=== PATIENT | female | born 1940 | race Caucasian/White ===

== ENCOUNTER → 2016-11-18 | Outpatient (CLI) | payer OTHER, BC | LOC: ULTRA 12:57 | DX: E04.2 Nontoxic multinodular goiter (principal) ==

== ENCOUNTER → 2017-09-07 | Outpatient (CLI) | payer OTHER, BC ==
[~2017-09-07] VITALS: Ht 154.9 cm; Wt 82.1 kg
[~2017-09-07] MED LIST: ATIVAN0.5 MG PO; CARDIZEM CD180 MG PO; CELEXA10 MG PO; COREG6.25 MG PO; COZAAR 50 MG TA50 M2 PO; CRESTOR10 MG PO; DEXILANT60 MG PO; HYDROCHLOROTHIA25 M2 PO; MESALAMINE800 MG PO; PEPCID20 MG PO
--- NOTE | ~2017-09-07 | P ---
[facility] [address] [address] PROCEDURE REPORT Name: AWILDA SILVA Room #: REG LOGAN Jing.#: [id number] Admission: 09/07/17 Attend Phys: Everette Barba MD Discharge: Date of : 42 Report #: [id number] THIS REPORT FOR: //name// CC: Everette Barba BRIEF HISTORY: The patient is a 77-year-old woman with previous history of dysphagia. She again reports solid food dysphagia with food hanging up at the level of suprasternal notch. She also had a recent admission to [facility] for atypical chest pain with burning in her chest. She reports to me that cardiovascular workup including stress testing at [facility] was negative. She is currently taking Dexilant 60 mg daily, which helps a lot, but she still has breakthrough symptoms, which she manages with [id number] Pepcid. PREOPERATIVE DIAGNOSIS: Dysphagia and reflux disease. POSTOPERATIVE DIAGNOSES: 1. Mild to moderate erosive antral gastritis. 2. Solid food dysphagia. MEDICATIONS: Deep sedation with propofol per anesthesia. SPECIMEN: Biopsies of gastritis. ESTIMATED BLOOD LOSS: 3 mL. PROCEDURE: EGD with biopsy and Acosta dilation. FINDINGS: Prior to propofol sedation, procedure of upper endoscopy and dilation was reviewed with the patient as well as potential risks and its complications. She indicates she understands and desires to proceed. DESCRIPTION OF PROCEDURE: With the patient in left decubitus position, Fuji video endoscope was inserted in the cervical esophagus under direct vision without difficulty. Examination of this organ through its entire length revealed normal esophageal mucosa down to the squamocolumnar junction. Squamocolumnar junction was normal. Even though she has reflux disease, I did not see evidence of esophagitis, Carbajal mucosa, strictures, masses or hiatus hernia. The scope was advanced into the stomach, which was examined on end view as well as retroflexed views. Examination of the stomach on end view as well as retroflexed views revealed antral gastritis with scattered erosions. No ulcers were seen. Upon retroflexion, no mass lesions were seen in the cardia. The pylorus, duodenal bulb and postbulbar duodenal sweep were inspected and noted to be unremarkable. At that point, the scope was slowly withdrawn and careful circumferential views confirmed the above findings. The patient tolerated the procedure well. [address] [address] PROCEDURE REPORT Name: AWILDA SILVA Room #: REG RAMESHLluvia Barber#: [id number] Admission: 09/07/17 Attend Phys: Everette Barba MD Discharge: Date of : 42 Report #: [id number] Subsequently, she was dilated with passage of 52-Czech Acosta dilator. There was no resistance. CONDITION OF THE PATIENT UPON DISCHARGE: Following procedure, the patient was drowsy, arousable, conversant. She will be discharged home when fully ambulatory. INSTRUCTIONS TO THE PATIENT AND FAMILY AT THE TIME OF DISCHARGE: As for her dysphagia, I did not see definite stricture ring. However, she has been dilated in the past and we dilated similar to what we did several years ago. If she has recurrent symptoms in the future and has benefit from dilation, she can return on an as needed basis for dilation. As far as her reflux disease, at this time she is requiring fairly significant therapy. She should continue to do so and if does well over time, consider a dose reduction of Dexilant. She will follow up with Dr. Everette Keyes. She should follow up with me if symptoms do not improve or recur. By: [id number] Everette Barba MD /nt
--- NOTE | ~2017-09-07 | PATH ---
[facility] [address] [place] [address] PATHOLOGY RPT PROCEDURE Name: AWILDA SILVA Room #: REG [facility] MAngelina.#: [id number] Admission: 09/07/17 Date of : 42 Discharge: Report #: [id number] Path Case #: [id number] [facility] Accession Number: [id number] . 01 Material submitted: . BIOPSY, GASTRITIS . 01 Clinical history: . Dysphagia, gastritis . 02 Diagnosis: "Bx gastritis," biopsy: - Gastric mucosa with mild reactive changes and mild chronic inflammation. - Negative H. pylori immunohistochemical stain (A1); control reacted appropriately. (CLW:mgsalnia; 09/08/17) QRQ/09/08/2017 . 02 Electronically signed: . Gretchen Sweeney MD, Pathologist NPI- [id number] . 01 Gross description: . The specimen is received in formalin, labeled "Alexander Awilda, BX gastritis" and consists of multiple fragments of albright soft tissue measuring 1.4 x 0.5 x 0.2 cm in aggregate. They are entirely submitted in A1. (SDY; 09/07/2017) SYU/SYU . 02 CPT . 554516, [id number] Performed at: [address], [place], [place] [id number] MD Yoshi Aguirre MD Phone: [phone] Performed at: [address] [id number] MD Manisha Carmona MD Phone: [phone]
== END | disposition home or self-care (01) ==
LOC: GI 07:40
DX: K29.50 Unspecified chronic gastritis without bleeding (principal); I10 Essential (primary) hypertension; F32.9 Major depressive disorder, single episode, unspecified; F41.9 Anxiety disorder, unspecified; J45.909 Unspecified asthma, uncomplicated; E78.5 Hyperlipidemia, unspecified; Z85.828 Personal history of other malignant neoplasm of skin; Z98.0 Intestinal bypass and anastomosis status; Z90.710 Acquired absence of both cervix and uterus; Z98.890 Other specified postprocedural states; Z98.41 Cataract extraction status, right eye; Z98.42 Cataract extraction status, left eye; Z79.899 Other long term (current) drug therapy; Z88.2 Allergy status to sulfonamides; Z88.8 Allergy status to other drugs, medicaments and biological substances
CPT/HCPCS: 62110; 62900

== ENCOUNTER → 2019-09-06 | Outpatient (CLI) | payer OTHER, BC ==
[~2019-09-06] VITALS: Ht 152.4 cm; Wt 74.8 kg
--- NOTE | ~2019-09-06 | P ---
[facility] [place] [address] PROCEDURE REPORT Name: AWILDA SILVA Room #: [facility] [id number] Admission: 09/06/19 Attend Phys: Everette Barba MD Discharge: Date of : 42 Report #: [id number] THIS REPORT FOR: cc: Everette Keyes MD, John M. MD Thesing, John A. MD ~ CC: Everette Barba BRIEF HISTORY: The patient is a 79-year-old woman with recent complaints of rectal bleeding. Her father had colon cancer. She has had a previous right hemicolectomy. Her last colonoscopy was more than 5 years ago. PREOPERATIVE DIAGNOSIS: Rectal bleeding. POSTOPERATIVE DIAGNOSES: 1. Rectal bleeding. 2. Perianal dermatitis. MEDICATIONS: Deep sedation with propofol per anesthesia. SPECIMEN: None. ESTIMATED BLOOD LOSS: None. PROCEDURE: Colonoscopy to distal ileum. MEDICATIONS: Deep sedation with propofol per anesthesia. SPECIMEN: None. ESTIMATED BLOOD LOSS: None. FINDINGS: Prior to propofol sedation, procedure of colonoscopy discussed with the patient as well as potential risks and its complications. She indicates she understands and desires to proceed. DESCRIPTION OF PROCEDURE: With the patient in left lateral decubitus position, digital examination was completed, which revealed fairly marked perianal dermatitis. Subsequently, the Olympus video colonoscope was introduced into the rectum, advanced under direct vision to the cecum. Done with minimal difficulty. The cecum was identified by the ileocecal valve and the appendiceal orifice. The scope was advanced to the proximal colon. In the proximal colon, an ileocolonic anastomosis was identified. The anastomosis was widely patent. The scope was advanced across the anastomosis and distal ileum was inspected and noted to be unremarkable. At that point, the scope was slowly withdrawn and [facility] [address] [place] [address] PROCEDURE REPORT Name: AWILDA SILVA Room #: REG LOGAN Barber#: [id number] Admission: 09/06/19 Attend Phys: Everette Barba MD Discharge: Date of : 42 Report #: [id number] careful circumferential views were obtained. Upon slow withdrawal of the scope, the prep was excellent. Mucosa was within normal limits, normal vascular pattern, normal light reflex. The mucosa was within normal limits throughout. No neoplastic lesions were seen. No bleeding lesions were seen. No inflammatory changes were seen. She had a normal endoscopic examination. The scope was withdrawn in the rectum and no abnormalities were seen. Upon retroflexion, no abnormalities were seen. Significant hemorrhoids were not seen. The anal fissuring was not seen. Scope was withdrawn. The patient tolerated the procedure well. CONDITION OF THE PATIENT UPON DISCHARGE: Following procedure, the patient drowsy. She will be discharged home when fully ambulatory. INSTRUCTIONS TO THE PATIENT AND FAMILY AT THE TIME OF DISCHARGE: No neoplastic or bleeding lesions were seen. However, I suspect the bleeding came from the anal canal. She did have some recent problems with constipation. I did not see any fissuring or any significant hemorrhoids. She does have a significant perianal dermatitis. We will discuss further with the patient. We will have her use nystatin cream and hydrocortisone cream as well. She should also use a barrier and keep this area dry. She also may need to use a skin barrier and also keep this area dry. Given her family history and her previous history, have her return in 5 years for a followup colonoscopy. She will return to care of Dr. Everette Keyes and return to see me as needed. By: [id number] Everette Barba MD /nt
== END | disposition home or self-care (01) ==
LOC: GI 06:30
DX: K62.5 Hemorrhage of anus and rectum (principal); L30.8 Other specified dermatitis; I10 Essential (primary) hypertension; E78.5 Hyperlipidemia, unspecified; K21.9 Gastro-esophageal reflux disease without esophagitis; J45.909 Unspecified asthma, uncomplicated; F32.9 Major depressive disorder, single episode, unspecified; F41.9 Anxiety disorder, unspecified; Z98.890 Other specified postprocedural states; Z79.899 Other long term (current) drug therapy; Z85.828 Personal history of other malignant neoplasm of skin; Z11.59 Encounter for screening for other viral diseases; Z98.42 Cataract extraction status, left eye; Z98.41 Cataract extraction status, right eye; Z98.0 Intestinal bypass and anastomosis status; Z80.0 Family history of malignant neoplasm of digestive organs; Z88.2 Allergy status to sulfonamides; Z88.8 Allergy status to other drugs, medicaments and biological substances

== ENCOUNTER 2020-08-26 14:26 | Emergency (ER) | payer OTHER, BC ==
[~2020-08-26] VITALS: Ht 152.4 cm; Wt 77.6 kg
[~2020-08-26 14:26] MED LIST changes: -COZAAR 50 MG TA50 M2 PO; +COZAAR 50 MG TA50 MG PO
[2020-08-26] MEDS ORDERED: BUDESONIDE EC3 MG PO (14:41)
[2020-08-26] MEDS ORDERED: CHOLESTYRAMINE378 GM PO (14:41)
[2020-08-26] MEDS ORDERED: DILTIAZEM 24HR240 M1 PO (14:41)
[2020-08-26] MEDS ORDERED: PROTONIX40 M2 PO (14:42)
[2020-08-26] MEDS ORDERED: DOXAZOSIN MESYLA1 MG PO (14:43)
[2020-08-26 15:05] LABS: BASOPHILS 0.8 % (0.0-2.0); EOSINOPHILS 0.6 % (0.0-3.0); HEMATOCRIT 36.1 % (37.0-47.0); HEMOGLOBIN 12.5 gm/dL (12.0-15.0); LYMPHOCYTES 27.2 % (24.0-44.0); MCH 32.2 pg (26.0-34.0); MCHC 34.5 g/dL (28.0-37.0); MCV 93.5 fL (80.0-100.0); PLATELET COUNT 242 thou/uL (150-400); POLYS 63.4 % (36.0-66.0); RBC 3.86 mil/uL (4.20-5.00); RDW 12.5 % (10.5-14.5); WBC 6.3 thou/uL (4.0-11.0)
[2020-08-26 15:19] LABS: ANION GAP 9 mmol/L (7-16); BUN 15 mg/dL (7-18); CALCIUM 8.9 mg/dL (8.5-10.1); CHLORIDE 106 mmol/L (98-107); CO2 25 mmol/L (21-32); CREATININE 0.8 mg/dL (0.6-1.0); GLUCOSE 110 mg/dL (74-106); POTASSIUM 3.9 mmol/L (3.5-5.1); SODIUM 140 mmol/L (136-145)
[2020-08-26 15:26] LABS: ALBUMIN 3.3 g/dL (3.4-5.0); DIRECT BILIRUBIN < 0.1 mg/dL (<0.1-0.2); LIPASE 140 U/L (73-393); SGOT 15 U/L (15-37); SGPT 23 U/L (14-59); TOTAL BILIRUBIN 0.3 mg/dL (0.2-1.0); TOTAL PROTEIN 6.6 g/dL (6.4-8.2)
[2020-08-26 16:49] VITALS: BP 195/69
== END 2020-08-26 16:49 | disposition home or self-care (01) ==
LOC: ER 14:26
PROVIDERS: Emergency Medicine
DX: K64.4 Residual hemorrhoidal skin tags (principal); I10 Essential (primary) hypertension; K21.9 Gastro-esophageal reflux disease without esophagitis; Z90.711 Acquired absence of uterus with remaining cervical stump; E78.5 Hyperlipidemia, unspecified; F32.9 Major depressive disorder, single episode, unspecified; F41.9 Anxiety disorder, unspecified; Z79.899 Other long term (current) drug therapy; Z88.5 Allergy status to narcotic agent; Z88.8 Allergy status to other drugs, medicaments and biological substances; Z91.048 Other nonmedicinal substance allergy status; Z88.2 Allergy status to sulfonamides